=== PATIENT | male | born 1965 | race Caucasian/White ===

== ENCOUNTER 2020-03-21 12:30 | Inpatient (IN) | payer OTHER ==
[~2020-03-21] VITALS: Ht 193 cm; Wt 139.3 kg
[2020-03-21 13:32] LABS: HEMOGLOBIN 14.5 gm/dl (14.0-17.5); RED BLOOD COUNT 4.53 M/UL (4.20-5.50); WHITE BLOOD COUNT 6.7 K/UL (4.5-11.0)
[2020-03-21 13:48] LABS: BUN/CREATININE RATIO 18 (0-10)
[2020-03-21] MEDS ORDERED: DOXYCYCLINE HY100 MG PO (16:29)
[2020-03-21] MEDS ORDERED: METFORMIN HCL500 M2 PO (16:29)
[2020-03-21] MEDS ORDERED: TENORMIN50 MG PO (16:30)
[2020-03-22 04:35] LABS: BUN/CREATININE RATIO 19 (0-10)
[2020-03-23 03:53] LABS: BUN/CREATININE RATIO 22 (0-10)
[2020-03-24 04:39] LABS: HEMOGLOBIN 13.8 gm/dl (14.0-17.5); RED BLOOD COUNT 4.27 M/UL (4.20-5.50)
[2020-03-24 04:48] LABS: WHITE BLOOD COUNT 10.8 K/UL (4.5-11.0)
[2020-03-24 04:58] LABS: BUN/CREATININE RATIO 17 (0-10)
[2020-03-25] MEDS ORDERED: LEVOFLOXACIN750 MG PO (12:21)
[2020-03-25] MEDS ORDERED: PROVENTIL HFA6.7 GM INH (12:21)
[2020-03-25] MEDS ORDERED: METFORMIN HCL500 M2 PO (12:21)
[2020-03-25] MEDS ORDERED: DECADRON6 MG PO (12:23)
== END 2020-03-26 12:49 | disposition home or self-care (01) | DRG 177 ==
LOC: ER1 12:30 → CDU 15:32 → MED SURG 4 15:32
PROVIDERS: Physician Assistant; ADMIT Internal Medicine
PROC: 8E0ZXY6 Isolation (ICD-10-PCS; principal; 2020-03-21)
PROC: XW033E5 Introduction of Remdesivir Anti-infective into Peripheral Vein, Percutaneous Approach, New Technology Group 5 (ICD-10-PCS; 2020-03-21)
PROC: XW13325 Transfusion of Convalescent Plasma (Nonautologous) into Peripheral Vein, Percutaneous Approach, New Technology Group 5 (ICD-10-PCS; 2020-03-22)
DX: U07.1 COVID-19 (principal); J12.82 Pneumonia due to coronavirus disease 2019; J96.01 Acute respiratory failure with hypoxia; E11.65 Type 2 diabetes mellitus with hyperglycemia; E66.01 Morbid (severe) obesity due to excess calories; R74.01 Elevation of levels of liver transaminase levels; I10 Essential (primary) hypertension; F17.220 Nicotine dependence, chewing tobacco, uncomplicated; Z79.84 Long term (current) use of oral hypoglycemic drugs; Z68.37 Body mass index [BMI] 37.0-37.9, adult; Z79.899 Other long term (current) drug therapy; Z90.49 Acquired absence of other specified parts of digestive tract
CPT/HCPCS: 0240U; 36600; 71045; 80048; 80053; 82550; 82553; 82803; 82962; 83036; 83874; 84484; 85025; 85027; 86710; 86900; 86901; 86927; 90471; 93005; 96372; 96374; 99285; J1100; J1650; J1956; J7030